=== PATIENT | male | born 1960 | race Caucasian/White ===

== ENCOUNTER 2024-02-23 17:59 | Emergency (ER) | payer BC, SELFPAY ==
--- NOTE | ~2024-02-23 | XR_ITS ---
EXAMINATIONS: XR hand wrist LT, XR forearm RT 2V CLINICAL INFORMATION: Reason for Exam left wrist pain. COMPARISON: None VIEWS: Frontal lateral and oblique navicular view left wrist, radius and ulna frontal lateral total of 6 views. FINDINGS: There is no evidence of acute fracture or dislocation. The distal radius is intact. The radiocarpal, intercarpal and carpal/metacarpal joints are normal. Ulnar styloid is intact. The scapholunate joint is normal. The lunate is properly positioned. The [id number]-[id number]-vxbharpj access is normal. The scaphoid bone is a properly articulating. XR/XR forearm RT 2V IMPRESSION: No evidence of acute fracture.
--- NOTE | ~2024-02-23 | XR_ITS ---
EXAMINATIONS: XR hand wrist LT, XR forearm RT 2V CLINICAL INFORMATION: Reason for Exam left wrist pain. COMPARISON: None VIEWS: Frontal lateral and oblique navicular view left wrist, radius and ulna frontal lateral total of 6 views. FINDINGS: There is no evidence of acute fracture or dislocation. The distal radius is intact. The radiocarpal, intercarpal and carpal/metacarpal joints are normal. Ulnar styloid is intact. The scapholunate joint is normal. The lunate is properly positioned. The [id number]-hdvx-[id number] access is normal. The scaphoid bone is a properly articulating. XR/XR hand wrist LT IMPRESSION: No evidence of acute fracture.
[2024-02-23 18:40] VITALS: BP 127/67; PULSE 58; RESP 18; TEMP 36.8; O2SAT 96; BMI 25.8
--- NOTE | 2024-02-23 18:50 | ED_ITS ---
HPI - General Adult General Chief complaint: Fall Stated complaint: fell cut right arm/broke left wrist? Time Seen by Provider: 02/23/24 21:21 Source: patient Mode of arrival: ambulatory Limitations: no limitations History of Present Illness HPI narrative: Patient comes to the emergency room complaining of a fall, left wrist pain and an abrasion to the right forearm. Related Data Allergies Allergy/AdvReac Type Severity Reaction Status Date / Time No Known Allergies Allergy Verified 02/23/24 18:45 [facility] Social History Social History Advance Directives: No Advance Directives Information Provided: No Do you have a plan to hurt others: No Plan Physical Exam ED Vital Signs: Vital Signs - 24 hr 02/23/24 18:40 02/23/24 21:25 Temperature 98.3 F 97.8 F Pulse Rate 58 48 L Respiratory Rate 18 15 Blood Pressure 127/67 101/56 L Pulse Oximetry 96 98 Oxygen Delivery Method Room Air Room Air BMI result Body Mass Index 25.8 Course Course Course Narrative: RME: 63-year-old male presents to ED for left wrist and right forearm pain after falling onto outstretched hands while running. Patient denies hitting head or loss of consciousness. Physical exam positive for right forearm abrasion. Slight leftward tenderness. Motor and neurovascular exam intact Discharge Plan Discharge Print Language: [place]
[2024-02-23 21:25] VITALS: BP 101/56; PULSE 48; RESP 15; TEMP 36.6; O2SAT 98
--- NOTE | 2024-02-23 21:41 | ED.FALL ---
HPI - Fall General Chief Complaint: Fall Stated Complaint: fell cut right arm/broke left wrist? Time Seen by Provider: 02/23/24 21:21 Source: patient Mode of arrival: ambulatory Limitations: no limitations History of Present Illness HPI Narrative: Patient comes to emergency room complaining of left wrist pain and an abrasion to the right forearm. Patient states that he was running his usual 7 mile run, around mile 6, patient tripped and fell. Patient did not hit his head, did not lose consciousness. Related Data Allergies Allergy/AdvReac Type Severity Reaction Status Date / Time No Known Allergies Allergy Verified 02/23/24 18:45 Review of Systems Review of Systems: Constitutional : No Weight loss, No Fever, No Chills, No Night Sweats, No Fatigue, No Malaise ENT/Mouth : No Hearing loss, No Ear Pain, No Nasal Congestion, No Sinus Pain, No Hoarseness, No sore throat, No Rhinorrhea, No Swallowing Difficulty Eyes: No Eye Pain, No Swelling, No Redness, No Foreign Body, No Discharge, No Vision Changes Cardiovascular : No Chest Pain, No SOB, No Dyspnea on Exertion, No Orthopnea, No Edema, No Palpitations Respiratory : No Cough, No Sputum, No Wheezing, No Smoke Exposure, No Dyspnea Gastrointestinal : No Nausea, No Vomiting, No Diarrhea, No Constipation, No abdominal Pain, No Hematochezia, No Melena Genitourinary : no irregular bleeding, No Dysuria, No Urinary Frequency, No Hematuria, No Urinary Incontinence, No Urgency, No Flank Pain, No Urinary Flow Changes, No Hesitancy Musculoskeletal : Complaining of left wrist pain Skin : Complaining of an abrasion to the right forearm Neuro : No Weakness, No Numbness, No Paresthesias, No Loss of Consciousness, No Dizziness, No Headache Psych : No Anxiety/Panic, No Depression, No SI/HI/AH/VH, No Social Issues, Heme/Lymph: No Bruising, No Bleeding,No Lymphadenopathy Endocrine : No Polyuria, No Polydipsia, No Temperature Intolerance PMFSH Social History Social History Advance Directives: No Advance Directives Information Provided: No Do you have a plan to hurt others: No Plan Physical Exam Vital Signs: Vital Signs: Last Vital Signs Temp 97.8 F 02/23/24 21:25 Pulse 48 L 02/23/24 21:25 Resp 15 02/23/24 21:25 BP 101/56 L 02/23/24 21:25 Pulse Ox 98 02/23/24 21:25 O2 Del Method Room Air 02/23/24 21:25 BMI result Body Mass Index 25.8 Const: Other: Appearance: Alert. Oriented X3. No acute distress. Eyes: Pupils equal, round and reactive to light. ENT: Pharynx normal. Neck: Normal inspection. Neck supple. No lymph nodes noted. No crepitus CVS: Normal heart rate and rhythm. Pulses normal. Normal S1 and S2 Respiratory: No respiratory distress. Breath sounds normal. No Wheezing. No rales Abdomen: Soft and nontender. No rigidity. No distention. Skin: Skin warm and dry. Normal skin color. Normal skin turgor. There is a 10 cm x 5 cm abrasion to the right forearm distal to the elbow Extremities: No lower extremity edema. No Lacerations. No Rash pain to palpation around the wrist, no obvious deformity, no ecchymosis, no tenderness at the snuffbox. People able to flex and extend but hurts doing so. Neuro: Oriented X 3. No motor deficit. No sensory deficit. Moving all extremities. No slurred speech. CN 2 through 12 grossly intact Psych: calm, cooperative, normal affect Medications Administered Discontinued Medications Generic Name Dose Route Start Last Admin Trade Name Juan Carlosq PRN Reason Stop Dose Admin Acetaminophen 650 mg 02/23/24 21:41 02/23/24 21:55 Acetaminophen 325 Mg Tablet PO 02/23/24 21:42 650 mg ONCE ONE Administration Diphtheria/Tetanus/Acell Pertussis 0.5 ml 02/23/24 21:41 02/23/24 21:56 Diphth,Pertus(Acell),Tet Adult 0.5 Ml Syringe IM 02/23/24 21:42 0.5 ml .ONCE ONE Administration Medical Decision Making Medical Decision Making [facility] Narrative: -my interpretation of x-ray, no obvious fracture or dislocation. -radiology report: No fracture -given the patient's abrasio on the right forearm, it was recommended the patient to get his Tdap booster which patient is not sure if his up-to-date. Patient agreeable with plan. -patient instructed to follow-up with his primary care physician. Patient given a dose of Tylenol in the ED Differential Diagnosis Differential Diagnoses: The differential diagnosis associated with the presentation includes (Wrist dislocation, fracture, contusion, abrasion) Independent Interpretation I performed an independent interpretation of an: Plain X-Ray Radiology Impression Discussion of test interpretation with radiology: I have reviewed the radiologist's reading. Radiologist Impression: FINDINGS: There is no evidence of acute fracture or dislocation. The distal radius is intact. The radiocarpal, intercarpal and carpal/metacarpal joints are normal. Ulnar styloid is intact. The scapholunate joint is normal. The lunate is properly positioned. The onbjot-kghp-bnsuvjte access is normal. The scaphoid bone is a properly articulating. XR/XR hand wrist LT IMPRESSION: No evidence of acute fracture. Discharge Plan Discharge Clinical Impression: Contusion of left wrist, Abrasion of skin Patient Disposition: Home, Self-Care Instructions: Abrasion (ED), Arthralgia (ED) Print Language: [place]
[2024-02-23] MEDS: Acetaminophen 325 MG TABLET 650 MG PO (21:55)
[2024-02-23] MEDS: Diphth,Pertus(ACell),Tet Adult 0.5 ML SYRINGE IM (21:56)
--- NOTE | 2024-02-23 22:00 | PC.NURSE ---
medicated per mar, pt resting in bed
[2024-02-23 22:25] VITALS: BP 101/56; PULSE 48; RESP 15; TEMP 36.6; O2SAT 98
== END 2024-02-23 22:25 | disposition home or self-care (01) ==
PROVIDERS: Emergency Provider Emergency Medicine; PCP Internal Medicine Nephrology
DX: S50.811A Abrasion of right forearm, initial encounter (principal); S60.212A Contusion of left wrist, initial encounter; W01.0XXA Fall on same level from slipping, tripping and stumbling without subsequent striking against object, initial encounter; Y93.02 Activity, running; Y92.9 Unspecified place or not applicable; Y99.9 Unspecified external cause status; Z23 Encounter for immunization
CPT/HCPCS: 73090; 73110; 73130; 90471; 90715; 99283; 99284